=== PATIENT | female | born 1985 | race Caucasian/White ===

== ENCOUNTER 2025-02-11 22:33 | Emergency (ER) | payer MEDICAID, SELFPAY ==
[2025-02-11 22:35] VITALS: BMI 30.7
[2025-02-11 22:50] VITALS: BP 114/75; PULSE 100; RESP 20; TEMP 37.1; O2SAT 95
--- NOTE | 2025-02-11 23:02 | XR_ITS ---
Examination: CT abdomen and pelvis without contrast. Coronal 3-D reconstructions. Sagittal 2-D reconstructions. Date and time of exam:February 12, 2025 at 0003 hours INDICATIONS: Severe generalized abdominal pain today CTDI: vol (mGy): 9 DLP: (mGycm): 502 Technique: Axial images of the abdomen have been obtained, 3 mm slice thickness Intravenous contrast material has not been administered. Low dose protocols were performed. One or more of the following dose reduction techniques were used; automated exposure control, adjustment of the mA and/or KV according to patient size, use of iterative reconstruction technique. Findings: 10 mm pulmonary nodule right lower lobe No focal liver or splenic lesions Contracted gallbladder mildly thick walled No pancreatic or adrenal mass No renal or ureteral calculi, no hydronephrosis Small fat-containing inguinal hernia No pericecal inflammatory changes Mildly fluid distended small bowel loops in the pelvis No pelvic mass Urinary bladder minimal wall thickening. IMPRESSION: 10 mm pulmonary nodule right lower lobe Recommend hepatobiliary sonography follow-up to assess the gallbladder wall. No renal or ureteral calculi Small bowel ileus versus mild enteritis Mild cystitis pattern
[2025-02-11 23:17] LABS: Basophils # (Auto) 0.1 Thou/mm3 (0.0-0.2); Basophils % (Auto) 1 % (0-2.5); Eosinophils # (Auto) 0.8 Thou/mm3 (0.0-0.5); Eosinophils % (Auto) 7 % (0-10); Hematocrit 37.5 % (36.0-46.0); Hemoglobin 13.4 g/dL (12.0-16.0); Immature Granulocytes Auto 0.03 Thou/mm3 (0.00-0.00); Lymphocytes # (Auto) 2.4 Thou/mm3 (1.0-4.8); Lymphocytes % (Auto) 20 % (10-50); Mean Corpuscular HGB Conc 35.7 g/dl (31.0-37.0); Mean Corpuscular Hemoglobin 33.0 pg (25.0-35.0); Mean Corpuscular Volume 92 fL (80-100); Monocytes # (Auto) 0.9 Thou/mm3 (0.0-0.8); Monocytes % (Auto) 7 % (0-12); Neutrophils # (Auto) 7.8 Thou/mm3 (1.8-7.7); Neutrophils % (Auto) 65 % (37-80); Nucleated Red Blood Cell # 0.00 Thou/mm3 (0.00-0.00); Nucleated Red Blood Cell % 0 /100 WBC (0); Platelet Count 262 Thou/mm3 (140-440); RDW Standard Deviation 44.4 fL (36.4-46.3); Red Blood Count 4.06 Miln/mm3 (4.00-5.20); White Blood Count 12.0 Thou/mm3 (3.6-11.0)
[2025-02-11 23:30] LABS: Collection Type, Urine Clean Catch
[2025-02-11 23:35] LABS: Alanine Aminotransferase 12 U/L (10-49); Albumin, Serum 4.3 gm/dL (3.5-5.0); Albumin/Globulin Ratio 1.7 (1.2-2.2); Alkaline Phosphatase 49 U/L (46-116); Anion Gap 9 (7-16); Aspartate Amino Transferase < 8 U/L (0-34); BUN/Creatinine Ratio 14 Ratio (12-20); Bilirubin,Total 0.4 mg/dL (0.3-1.2); Blood Urea Nitrogen 10 mg/dL (9-23); Calcium 10.0 mg/dL (8.3-10.6); Calcium (Corrected) 10.0 mg/dL (8.5-10.1); Carbon Dioxide 26.7 mMol/L (20.0-31.0); Chloride 106 mMol/L (98-107); Creatinine (Component) 0.7 mg/dL (0.6-1.3); Estimated Creatinine Clearance 110.1 mL/min (>60); Globulin 2.5 gm/dL (2.3-3.5); Glucose 155 mg/dL (74-106); Lipase 53 U/L (12-53); Osmolality,Calculated 285 (275-295); Potassium 4.0 mMol/L (3.4-5.1); Sodium 142 mMol/L (136-145); Total Protein 6.8 gm/dL (5.7-8.2); eGFR > 60 See Note
[2025-02-11 23:43] LABS: HCG Qualitative,Urine Negative
[2025-02-11 23:44] LABS: Bilirubin,Urine Negative (Negative); Blood,Urine Negative (Negative); Clarity,Urine Clear (Clear/Hazy); Color,Urine Lt-Yellow (Lt Yel-Yel); Glucose, Urine Negative (Negative); Hyaline Casts,Urine < 1 /hpf (0-1); Ketones,Urine Negative (Negative); Leukocyte Esterase,Urine Negative (Negative); Nitrite,Urine Negative (Negative); PH,Urine 6.5 (5.0-7.0); Protein,Urine Negative (Neg - Trace); RBC,Urine 1 /hpf (0-3); Specific Gravity,Urine 1.028 (1.001-1.035); Squamous Epithelial Cell,Urine 4 /hpf (0-5); Urobilinogen,Urine Negative mg/dL (0.0-1.0); WBC,Urine 1 /hpf (0-5)
--- NOTE | 2025-02-12 03:22 | PRELIM_ITS ---
CT scan of the abdomen and pelvis without intravenous contrast (axial sections with sagittal and coronal reformats) February 12, 2025 0003 hours Clinical History: Abdominal pain Comparison: No prior study is available for comparison. Findings: The lung bases are clear. The gallbladder is contracted and mildly thick-walled. The liver, pancreas, spleen, kidneys and adrenals are unremarkable on this noncontrast study. The stomach is distended with food residue. No evidence of bowel obstruction. There are dilated fluid-filled small bowel loops in the lower abdomen. The appendix is not definitively visualized; however, there is no evidence of inflammatory process in the right lower quadrant to suggest appendicitis. There is no mesenteric or retroperitoneal adenopathy. The urinary bladder is incompletely distended at the time of the examination and appears mildly thick walled. The uterus is unremarkable. There is no free fluid or free air. The osseous structures are unremarkable. Impression: 1. No evidence of bowel obstruction, free air or fluid collection on this noncontrast study. No evidence to suggest appendicitis although the appendix remains nonvisualized. 2. Mildly prominent fluid filled small bowel loops in lower abdomen, nonspecific however mild ileus cannot be excluded. Recommend clinical correlation. 3. Other findings as described above. Report Electronically Signed By: Leopoldo Key 02/12/2025 3:21:07 AM [EST]
--- NOTE | 2025-02-12 03:35 | EDNOTE_ITS ---
ED Abdominal Pain RME/HPI General Chief Complaint: Abdominal Pain Stated complaint: ABD PAIN NVD Time seen by provider: 02/11/25 22:48 Arrival date/time: 02/11/25 22:33 This is a case of 40-year-old female who came in the emergency room due to abdominal pain located in periumbilical area cramping in character associated with nausea vomiting diarrhea for 2 days persistence of the symptoms this patient decided to start consult here in the emergency room Limitations: no limitations Related Data Home Medications ?Medication ?Instructions ?Recorded ?Confirmed metformin 1,000 mg tablet 1,000 mg PO BID 11/03/1908/31 glipizide 5 mg tablet 5 mg PO BID 01/16/20 2 insulin glargine 100 unit/mL (3 38 unit subcut HS 01/0802/07/22 mL) subcutaneous pen (Basaglar KwikPen U-100 Insulin) albuterol sulfate 0.63 mg/3 mL See Rx Instructions .Ro dayana .COMPLEX 02/07/22 02/07/22 solution for nebulization albuterol sulfate 90 mcg/actuation 2 puff inhalation Q 4H PRN 02/07/22 02/07/22 aerosol inhaler Shortness Of Breath Or Wheez ing cyclobenzaprine 5 mg tablet 1 tab PO QDAY PRN Pain 08/3102/07/22 fluticasone 500 mcg-salmeterol 50 1 inh inhalation BID 02/07/22 02/07/22 mcg/dose blistr powdr for inhalation (Wixela Inhub) ibuprofen 400 mg tablet 1 tab PO Q6H PRN Pain 02/07/22 levalbuterol HCl 1.25 mg/3 mL See Rx Instructions .Rou te .COMPLEX 02/07/22 02/07/22 solution for nebulization levalbuterol tartrate 45 See Rx Instructions .Route . COMPLEX 02/07/22 02/07/22 mcg/actuation aerosol inhaler montelukast 10 mg tablet 1 tab PO QDAY 02/07/2202/07 tiotropium bromide 1.25 2 puff inhalation BID 02/07/22 mcg/actuation mist for inhalation (Spiriva Respimat) Previous Rx's ?Medication ?Instructions ?Recorded prednisone 20 mg tablet See Taper PO QDAY #11 tabs 0 02/08/22 amoxicillin 875 mg-potassium 1 tab PO Q12H #20 tabs clavulanate 125 mg tablet dicyclomine 20 mg tablet 20 mg PO TID PRN abdominal p ain 02/12/25 #20 tabs loperamide 2 mg capsule (Imodium 2 mg PO Q6H PRN loose stool #10 02/12/25 A-D) caps ondansetron 4 mg disintegrating 4 mg PO Q8H PRN nausea and 02/12/25 tablet vomiting #20 tabs Allergies Allergy/AdvReac Type Severity Reaction Status Date / Time chlorhexidine Allergy Verified 02/11/25 22:40 latex Allergy Verified 02/11/25 22:40 Review of Systems Review of Systems Systems Reviewed: All systems reviewed, normal except as documented Constitutional Constitutional: Reports system reviewed and no additional complaints, except as documented and Reports as per HPI ENT Ears, Nose, Mouth, and Throat: Denies dysphagia and Denies odynophagia Cardiovascular Cardiovascular: Reports system reviewed and no additional complaints, except as documented and Reports as per HPI Respiratory Respiratory: Reports system reviewed and no additional complaints, except as documented and Reports as per HPI Gastrointestinal Gastrointestinal: Reports system reviewed and no additional complaints, except as documented, Reports as per HPI, Reports abdominal pain, Denies belching, Denies bloating, Denies change in bowel habits, Denies change in stool charact er, Denies coffee ground emesis, Denies constipation, Denies cramping, Reports diarrhea, Denies dyspepsia, Denies dysphagia, Denies early satiety, Denies excessive flatus, Denies fecal incontinence, Denies heartburn, Denies hematemesis, Denies hematochezia, Denies loose stools, Denies melena, Reports nausea, Denies odynophagia, Denies tenesmus and Reports vomiting Genitourinary Genitourinary: Reports system reviewed and no additional complaints, except as documented and Reports as per HPI Musculoskeletal Musculoskeletal: Reports system reviewed and no additional complaints, except as documented and Reports as per HPI Neurologic Neurologic: Reports system reviewed and no additional complaints, except as documented and Reports as per HPI Past Medical History Past Medical History NEUROLOGIC: Negative Neurological Disorders, Cerebrovascular Accident, Transient Ischemic Attacks (TIA), Dementia, Alzheimer's Disease, Parkinson's Disease, Brain Tumor, Meningitis, Seizures, Epilepsy, Multiple Sclerosis, Cerebral Palsy, Amyotrophic Lateral Sclerosis (ALS/Sofía Gehrig's), Guillain-Leonore Syndrome, Spina Bifida, Paralysis, Peripheral Neuropathy, Che's Palsy, Subdural Hematoma, Migraine, Head Trauma, Spinal Cord Injury or Traumatic Brain Injury CARDIAC: Negative Cardiac Disorders, Myocardial Infarction, Cardiac Arrhythmia, Atrial Fibrillation, Angina, Heart Murmur, Coronary Artery Disease, Athe rosclerotic Heart Disease, Peripheral Vascular Disease, Hypercholesterolemia, Aneurysm, Congestive Heart Failure, Congenital Heart Disease, Valvular Heart Disease, Rheumatic Fever, Cardiomyopathy, Edema, Pericarditis, Cellulitis, Deep Vein Thrombosis, Hypertension, Hypotension or Varicose Veins RESPIRATORY: Positive Chronic Obstructive Pulmonary Disease (COPD) and Asthma; Negative Bronchitis, Emphysema, Pneumonia, Pulmonary Fibrosis, Cystic Fibrosis, Tuberculosis, Pulmonary Embolism, Pulmonary Edema or Sleep Apnea GASTROINTESTINAL: Positive Obesity; Negative Gastrointestinal Disorders, Hepatitis, Cirrhosis, Pancreatitis, Celiac Disease, Gall Bladder Disease, Gastrointestinal Bleed, Esophageal Varices, Hdez's Esophagus, Colitis, Ulcerative Colitis, Diverticulitis, Diverticulosis, Ulcer, Irritable Bowel, Crohn's Disease, Obstructive Bowel, Hiatal Hernia, Hemorrhoids or Gastroesophageal Reflux Disease GENITOURINARY: Negative Genitourinary Disorders, Renal Disease, Kidney Stones, Polycystic Kidney Disease, Neurogenic Bladder, Inguinal Hernia, Dialysis or Benign Prostatic Hyperplasia REPRODUCTIVE: Positive Previous Pregnancies; Negative Endometriosis, Genital Herpes, Gonorrhea, Pelvic Inflammatory Disease, Syphilis or Uterine Prolapse MUSCULOSKELETAL: Positive Musculoskeletal Disorders; Negative Muscular Dystrophy, Myasthenia Gravis, Marfan's Syndrome, Arthritis, Rheumatoid Arthritis, Osteoporosis, Degenerative Disk Disease, Gout, Scoliosis, Carpal Tunnel Syndrome, Fibromyalgia, Fractures, Degenerative Joint Disease, Osteomyelitis or Poliovirus ENT: Negative Cataracts, Glaucoma, Blind, Retinal Detachment, Macular Degeneration, Ear Infection, Deafness, Head Trauma or Eye Prosthesis ENDOCRINE: Positive Endocrine Disorders and Diabetes Mellitus Type 2; Negative Diabetes Mellitus Type 1, Hypoglycemia, [place]'s Syndrome, Dieudonne's Disease, Hyperthyroidism, Parathyroid Disease, Pituitary Disease, Systemic Lupus Erythematosus, Syndrome of Inappropriate Antidiuretic Hormone (SIADH), Adrenal Disease or Graves' Disease HEMATOLOGIC: Negative Blood Disorders, Anemia, Leukemia, Hemophilia, Thalassemia, Sickle Cell Disease or Clotting Problems PSYCHO/SOCIAL: Positive Recreational Drug Use (IN THE PAST); Negative Psychiatric Problems, Schizophrenia, Bipolar Disorder, Depression, Anxiety, Behavior Problems, Self-Mutilation, Attention Deficit Disorder, Attention Deficit Hyperactivity Disorder, Depression, Post Traumatic Stress Disorder or Eating Disorder OTHER HISTORY: Positive Hospitalization, MRSA and Chicken Pox; Negative Autoimmune Disease, Autism, Shingles, Falls, Blood Transfusions, Blood Transfusion Reaction, Anesthesia Reactions, Organ Transplant or Cancer Family History FAMILY HISTORY: Positive Family Gastrointestinal Problems; Negative Family Neurologic Problems, Family Psychiatric Problems, Family Respiratory Disorders, Family Cardiac Disorders, Family Cancer, Family Surgery or Family Anesthesia Reaction Surgical History SURGICAL: Positive Abdominal Surgery and Section; Negative Cardiac Surgery, Pacemaker, Endocrine Surgery, Ear Surgery, Joint Replacement, Amputation, Open Reduction Internal Fixation, Arthroscopy, Neurologic Surgery or Organ Transplant Social History SMOKING STATUS: Former smoker SUBSTANCE USE: former substance user, marijuana (former) and methamphetamine (former) ED Exam General Limitations: Present no limitations General appearance: Present alert and in no apparent distress Head Head exam: Present atraumatic Eye Eye exam: Present normal appearance, PERRL and EOMI ENT ENT exam: Present normal exam, normal oropharynx and mucous membranes moist Neck Neck exam: Present normal inspection, full ROM and trachea midline Chest Chest inspection: Present normal inspection and symmetric chest wall rise; Absent tenderness, rash or abscess Respiratory Respiratory exam: Present normal lung sounds bilaterally; Absent respiratory distress, wheezes, stridor, accessory muscle use or prolonged expiratory phase Cardiovascular Cardiovascular exam: Present regular rate, normal rhythm and normal heart sounds; Absent bradycardia, tachycardia, irregular rhythm or diastolic murmur Abdominal Exam Abdominal exam: Present soft, tenderness (Mild tenderness periumbilical area) and normal bowel sounds; Absent distention, guarding, rebound, rigidity, diminished bowel sounds, hyperactive bowel sounds, hypoactive bowel sounds, organomegaly, obturator sign, Moncada's sign, Rovsing's sign, tenderness at McBurney's Point, ascites or pulsatile mass Extremities Exam Extremities exam: Present normal inspection and full ROM Back Exam Back exam: Present normal inspection and full ROM Neurological Exam Neurological exam: Present alert, oriented X3, CN II-XII intact, normal gait and reflexes normal; Absent motor sensory deficit Psychiatric Psychiatric exam: Present normal affect and normal mood Skin Skin exam: Present warm, dry, intact and normal color Course Quality Measures none Orders Category Date Time Status CT abdomen pelvis wo con Stat Exams 02/11/25 23:02 Taken CBC Stat Lab 02/11/25 23:10 Completed Comprehensive Metabolic Panel Stat Lab 02/11/25 23:10 Completed HCG Qualitative,Urine Stat Lab 02/11/25 23:20 Completed Lipase Stat Lab 02/11/25 23:10 Completed Urinalysis Stat Lab 02/11/25 23:20 Completed Ketorolac Inj [Toradol Inj] Med 02/12/25 03:36 Discontinued 30 mg IM X1 ONE Ondansetron Odt [Zofran Odt] Med 02/12/25 03:36 Discontinued 4 mg PO X1 ONE Vital Signs Vital signs: Vital Signs Temperature 98.8 F 02/11/25 22:50 Pulse Rate 100 02/11/25 22:50 Respiratory Rate 20 02/11/25 22:50 Blood Pressure 114/75 02/11/25 22:50 Pulse Oximetry (%) 95 02/11/25 22:50 Oxygen Delivery Method Room Air 02/11/25 22:50 Oxygen saturation 98% in room air normal Abdominal Pain MDM MDM Narrative MDM Narrative:: This is a case of 40-year-old female who came in the emergency room due to abdominal pain located in periumbilical area cramping in character associated with nausea vomiting diarrhea for 2 days persistence of the symptoms this patient decided to start consult here in the emergency room physical examination patient is awake alert oriented not in distress nontoxic looking well-hydrated well-nourished excellent skin turgor no signs and symptoms of sepsis no signs and symptoms of dehydration abdominal exam is benign nonsurgical no guarding no rebound mild tenderness in periumbilical area no guarding no rebound no rigidity negative psoas negative straight or negative Rovsing's negative Austen's negative Moncada sign negative CVA tenderness patient had mild leukocytosis 12,000 no anemia kidney and liver function is normal no electrolyte imbalance lipase is normal urinalysis is normal CT scan is normal mild ileus patient will be treated as possible gastroenteritis patient was given Toradol [place] and Zofran which abdominal pain improved and resolved no recurrence of vomiting patient will be discharged with Augmentin for possible acute gastroenteritis patient was given Zofran for vomiting Imodium for loose stool patient will follow-up with PCP and for any worsening symptoms she will return in the emergency room immediately or call 911 Patient was discharged with comfortable condition walking with stable gait. Patient verbalized no further complains explained diagnosis and answered patient question. Patient is comfortable with the proposed management plan including the need to follow up with his/her primary care physician and any specialist if applicable Discussed patient for any urgent condition or worsening sx, He/She needed to go to emergency room immediately or call 911. Patient acknowledge the responsibility to follow up as instructed and to monitor her/his symptoms. For any persistence of the symptoms for more than 3-5 days return precaution advised. Discussed the result of the test and was given printed discharge instruction Patient data External records reviewed:: [facility] previous records Clinical information provided by:: patient Social determinants that could affect healthcare access:: none Patient has the following chronic illnesses:: None How is presenting disease/condition affected by chronic disease/condition?: no chronic disease Evaluation data The following diagnostics were reviewed and interpreted by me:: lab results and radiology exam(s) Lab and/or radiology exams considered but not ordered:: Reviewed Interpretation Summary: Reviewed Medications / Prescriptions Medications or Prescriptions considered but not ordered:: Given Medication administrations:: Medication Administration History Discontinued Medications Ketorolac Tromethamine (Ketorolac Inj 60 Mg/2 Ml Vial) 30 mg IM X1 ONE Stop: 02/12/25 03:37 Ondansetron HCl (Ondansetron Odt 4 Mg Tabrap) 4 mg PO X1 ONE; Protocol Stop: 02/12/25 03:37 Given Consultations Consultation(s) initiated? (list below): No Diagnosis Differential diagnosis abdominal pain: abdominal pain, acute appendicitis, calculus of kidney, diverticulitis and gastroenteritis Most likely diagnosis given after review of the tests above:: Acute gastroenteritis Admission Indicated Admission indicated?: not indicated Explain why admission is indicated or not indicated:: Not indicated Admission Request Was there a request for admission?: No Admission Attestation Admission request attestation: Not indicated Disposition Plan Disposition Plan: Discharge Discharge Attestation Discharge Attestation: The patient and all family members were given an opportunity to ask questions and understood the discharge instructions. Discharge instructions specifically effects, indications for sooner follow up or return to the emergency department, and the expected course of current diagnosis. Patient condition: Stable Discharge Plan Plan Patient Disposition: HOME (Self Care) Patient condition on transfer: Stable Prescriptions/Referrals Prescriptions/Med Rec: New dicyclomine 20 mg tablet 20 mg PO TID PRN (Reason: abdominal pain) Qty: 20 0RF loperamide [Imodium A-D] 2 mg capsule 2 mg PO Q6H PRN (Reason: loose stool) Qty: 10 0RF amoxicillin-pot clavulanate 875-125 mg tablet 1 tab PO Q12H Qty: 20 0RF ondansetron 4 mg tablet,disintegrating 4 mg PO Q8H PRN (Reason: nausea and vomiting) Qty: 20 0RF No Action glipizide 5 mg Tablet 5 mg PO BID albuterol sulfate 0.63 mg/3 mL solution for nebulization See Rx Instructions .ROUTE .COMPLEX Patient Comments: USE 1 VIAL IN NEBULIZER EVERY 4 TO 6 HOURS NEEDED FOR SHORTNESS OF BREATH Rx Instructions: USE 1 VIAL IN NEBULIZER EVERY 4-6 HOURS NEEDED FOR SHORTNESS OF BREATH fluticasone propion-salmeterol [Wixela Inhub] 500-50 mcg/dose blister with device 1 inh INHALATION BID Patient Comments: INHALE 1 PUFF BY MOUTH TWICE A DAY ibuprofen 400 mg tablet 1 tab PO Q6H PRN (Reason: Pain) Patient Comments: TAKE 1 TABLET BY MOUTH EVERY 6 HOURS NEEDED FOR PAIN montelukast 10 mg tablet 1 tab PO QDAY Patient Comments: TAKE 1 TABLET BY MOUTH EVERY DAY levalbuterol HCl 1.25 mg/3 mL solution for nebulization See Rx Instructions .ROUTE .COMPLEX Patient Comments: USE 1 VIAL IN NEBULIZER EVERY 4 HOURS NEEDED FOR SHORTNESS OF BREATH Rx Instructions: USE 1 VIAL IN NEBULIZER EVERY 4 HOURS NEEDED FOR SHORTNESS OF BREATH albuterol sulfate 90 mcg/actuation HFA aerosol inhaler 2 puff INHALATION Q4H PRN (Reason: Shortness Of Breath Or Wheezing) Patient Comments: INHALE 2 PUFFS BY MOUTH EVERY 4 TO 6 HOURS NEEDED FOR SHORTNESS OF BREATH Rx Instructions: TAKE 2 PUFFS EVERY 4-6 HOURS NEEDED FOR SHORTNESS OF BREATH cyclobenzaprine 5 mg tablet 1 tab PO QDAY PRN (Reason: Pain) Patient Comments: TAKE 1 TABLET BY MOUTH IN THE EVENING NEEDED FOR PAIN levalbuterol tartrate 45 mcg/actuation HFA aerosol inhaler See Rx Instructions .ROUTE .COMPLEX Patient Comments: INHALE 2 PUFFS BY MOUTH EVERY 4 TO 6 HOURS NEEDED FOR SHORTNESS OF BREATH Rx Instructions: TAKE 2 PUFFS EVERY 4-6 HOURS NEEDED FOR SHORTNESS OF BREATH Spiriva Respimat 1.25 mcg/actuation mist 2 puff INHALATION BID Patient Comments: TAKE 2 PUFFS BY MOUTH EVERY DAY prednisone 20 mg tablet See Taper PO QDAY Qty: 11 0RF Taper: Prednisone Taper 20 mg DAILY for 2 Days and 0 Hour 10 mg DAILY for 2 Days and 0 Hour 5 mg DAILY for 7 Days and 0 Hour metformin 1,000 mg Tablet 1,000 mg PO BID insulin glargine [Basaglar KwikPen U-100 Insulin] 100 unit/mL (3 mL) insulin pen 38 unit SUBCUT HS Referrals: No Primary/Family,Physician [Primary Care Provider] - In 1 week Problem List Clinical Impression: Abdominal pain, Gastroenteritis, Nausea vomiting and diarrhea Patient/Caregiver Discharge Instructions Education Materials: Abdominal Pain, ED Gastroenteritis, Noninfectious, ED Vomiting (Adult), ED Vomiting and Diarrhea ... Additional Instructions: Follow-up with your primary care physician in 2 days for reevaluation worsening symptoms or any emergent concern call 911 or go to the nearest emergency room take your medication as directed finish the course of antibiotic increase water intake keep hydrated Pedialyte Gatorade for every bout of vomiting Print Language: Chilean Stand Alone Forms: Bety Award Info., Patient Portal Info Letter PA/COST AND RISK ANALYSIS MANAGER Supervising Physician PA/COST AND RISK ANALYSIS MANAGER Supervising Physician: dr napoles
[2025-02-12] MEDS: ONDANSETRON ODT 4 MG TABRAP PO (04:14)
[2025-02-12] MEDS: KETOROLAC INJ 60 MG/2 ML VIAL 30 MG IM (04:15)
== END 2025-02-12 04:19 | disposition home or self-care (01) ==
PROVIDERS: Nurse Practitioner Family; Emergency Provider Emergency Medicine
DX: K52.9 Noninfective gastroenteritis and colitis, unspecified (principal)
CPT/HCPCS: 36415; 74176; 80053; 81001; 81025; 83690; 85025; 96372; 99284; J1885; Q0162